=== PATIENT | female | born 1970 | race Caucasian/White ===

== ENCOUNTER → 2018-02-12 | Outpatient (CLI) | payer OTHER | LOC: M WHC 07:34 | DX: Z12.31 Encounter for screening mammogram for malignant neoplasm of breast (principal); Z92.0 Personal history of contraception | CPT/HCPCS: 77067 ==

== ENCOUNTER → 2019-07-23 | Outpatient (CLI) | payer OTHER ==
--- NOTE | 2019-07-23 12:17 | REPMRS ---
Patient History The patient states she had a clinical breast exam in 2018. Family history of colorectal cancer at age 45 in mother, colorectal cancer at age 70 in maternal grandmother, prostate cancer at age 62 in brother. Took hormonal contraceptives for 10 years 4 months. Digital Woman Screen Mammo: July 23, 2019 - Exam #: [id number] Bilateral CC and MLO view(s) were taken. Technologist: Kathie Stanford, Technologist Prior study comparison: February 12, 2018, bilateral digital woman screen mammo performed at [facility]. September 08, 2014, digital woman screen mammo performed at [facility]. August 03, 2013, bilateral bilat screen digital mammo, performed at [facility] ([facility] FINDINGS: The breast tissue is heterogeneously dense. This may lower the sensitivity of mammography. There is a moderate amount of heterogeneously dense fibroglandular tissue which is fairly symmetric. There is no interval development of dominant mass, architectural distortion, or grouped microcalcification typical of malignancy. There has been no change in the appearance of the mammogram from the prior studies. 3-D tomosynthesis shows no additional findings. Assessment: BI-RADS/ACR category 1 mammogram. Negative Mammogram. Recommendation Routine screening mammogram of both breasts in 1 year (for women over age 40). This patient's Lifetime Breast Cancer RIsk is estimated at 8.1 %. This mammogram was interpreted with the aid of an FDA-approved computer-aided dectection system. Electronically Signed By: Gurvinder Guerrier MD 07/23/19 3133
== END ==
LOC: M WHC 11:31
PROVIDERS: ATTEND Physician Assistant
DX: Z12.31 Encounter for screening mammogram for malignant neoplasm of breast (principal); R92.2 Inconclusive mammogram

== ENCOUNTER → 2019-11-23 | Outpatient (REF) | payer OTHER ==
[~2019-11-23] MED LIST: NO MEDICATIONS
== END ==
LOC: M SFHCADAM 13:03
PROVIDERS: ATTEND Physician Assistant
DX: Z12.4 Encounter for screening for malignant neoplasm of cervix (principal)

== ENCOUNTER → 2022-07-14 | Outpatient (CLI) | payer OTHER ==
[~2022-07-14] MED LIST changes: +ZOMI5TAB12 PO
== END ==
LOC: M LABSMTC 11:52
PROVIDERS: ATTEND Surgery
DX: Z01.812 Encounter for preprocedural laboratory examination (principal); Z20.822 Contact with and (suspected) exposure to COVID-19

== ENCOUNTER 2022-07-18 12:00 | Day surgery (SDC) | payer OTHER ==
[~2022-07-18] VITALS: Ht 167.6 cm; Wt 83.2 kg
[~2022-07-18 12:00] MED LIST changes: +NS 1,000 ML IV ONE
[2022-07-18] MEDS ORDERED: propofoL 200 MG/20 ML VIAL As Ordered ONE (14:12)
[2022-07-18 14:45] VITALS: BP 141/78
[2022-07-18] MEDS ORDERED: LIDOCAINE 2% 100MG/5ML SDV (FOR ANES.) As Ordered ONE (15:06)
== END 2022-07-18 14:55 | disposition home or self-care (01) ==
LOC: M OPP 12:00
PROVIDERS: ATTEND Surgery
DX: K62.5 Hemorrhage of anus and rectum (principal); Z80.0 Family history of malignant neoplasm of digestive organs; Z79.899 Other long term (current) drug therapy; I49.9 Cardiac arrhythmia, unspecified; G43.909 Migraine, unspecified, not intractable, without status migrainosus; Z86.16 Personal history of COVID-19

== ENCOUNTER → 2023-11-29 | Outpatient (REF) | payer OTHER ==
[~2023-11-29] MED LIST changes: -NS 1,000 ML IV ONE
== END ==
LOC: M LAB REF 19:39
PROVIDERS: ATTEND Physician Assistant Medical
DX: J02.9 Acute pharyngitis, unspecified (principal)